=== PATIENT | female | born 1990 | race Caucasian/White ===

== ENCOUNTER 2024-02-15 13:56 | Outpatient (CLI) | payer OTHER, SELFPAY ==
--- NOTE | 2024-02-15 14:00 | CRLHL7_ITS ---
For Patients: As a result of the Century Cures Act, medical imaging exams and procedure reports are released immediately into your electronic medical record. You may view this report before your referring provider. If you have questions, please contact your health care provider. INDICATION: Dating and viability. LMP 12/17/2023. COMPARISON: None. TECHNIQUE: Real-time waggoner-scale imaging of the pelvis was performed. FINDINGS: Sonographic imaging demonstrates a single living intrauterine gestation. The embryo has a regular cardiac rate measuring 142 beats per minute. The embryo`s crown-rump length measures 1.2 cm which corresponds to a gestational age of 7 weeks 3 days with sonographic due date 09/30/2024. There is a normal-appearing yolk sac. The placenta has not yet developed. There is a 2.3 x 0.1 x 1.2 cm subchorionic hemorrhage posterior to the gestational sac. The right ovary was not visualized. The left ovary measures 4.6 x 2.5 x 2.4 cm and contains a corpus luteal cyst. No free fluid in the pelvic cul-de-sac. IMPRESSION: 1. Single living intrauterine gestation corresponding to an ultrasound gestational age of 7 weeks 3 days with sonographic due date 09/30/2024. 2. The clinical gestational age by LMP is 8 weeks 4 days. 3. Small subchorionic hemorrhage. Dictated by Niurka Ramirez MD @ 02/16/2024 3:08:36 AM (Electronically Signed)
== END 2024-02-15 13:57 | disposition home or self-care (01) ==
LOC: US 13:57
PROVIDERS: Visit Provider Advanced Practice Midwife
DX: Z34.91 Encounter for supervision of normal pregnancy, unspecified, first trimester (principal); O20.9 Hemorrhage in early pregnancy, unspecified; Z3A.01 Less than 8 weeks gestation of pregnancy
CPT/HCPCS: 76817; 86703; 86706; 86803; 86850; 86900; 86901; 87086; 87340

== ENCOUNTER 2024-02-15 14:45 | Outpatient (CLI) | payer OTHER, SELFPAY | END 2024-02-15 14:46 | disposition home or self-care (01) | PROVIDERS: Visit Provider Advanced Practice Midwife | DX: Z34.91 Encounter for supervision of normal pregnancy, unspecified, first trimester (principal); Z3A.01 Less than 8 weeks gestation of pregnancy | CPT/HCPCS: 86592; 86703; 86704; 86706; 86762; 86787; 86803; 86850; 86900; 86901; 87086; 87340 ==

== ENCOUNTER 2024-04-13 14:56 | Outpatient (CLI) | payer OTHER, SELFPAY | END 2024-04-13 14:57 | disposition home or self-care (01) | LOC: NFLDREF 04-24 02:50 | PROVIDERS: Visit Provider Advanced Practice Midwife | DX: Z34.92 Encounter for supervision of normal pregnancy, unspecified, second trimester (principal); Z86.79 Personal history of other diseases of the circulatory system; Z87.59 Personal history of other complications of pregnancy, childbirth and the puerperium; Z3A.15 15 weeks gestation of pregnancy | CPT/HCPCS: 82565; 82570; 84156; 84450; 84460; 84520 ==

== ENCOUNTER 2024-04-14 15:00 | Outpatient (CLI) | payer OTHER, SELFPAY | END 2024-04-14 15:01 | disposition home or self-care (01) | LOC: NFLDREF 04-22 19:37 | PROVIDERS: Visit Provider Advanced Practice Midwife | DX: Z87.59 Personal history of other complications of pregnancy, childbirth and the puerperium (principal) | CPT/HCPCS: 82570; 84156 ==

== ENCOUNTER 2024-05-12 12:08 | Outpatient (CLI) | payer OTHER, SELFPAY ==
--- NOTE | 2024-05-12 12:15 | CRLHL7_ITS ---
For Patients: As a result of the 21st Century Cures Act, medical imaging exams and procedure reports are released immediately into your electronic medical record. You may view this report before your referring provider. If you have questions, please contact your health care provider. GARTH by US: 09/30/2024. GA: 19w, 6d. Single. INDICATION: anatomy. CERVIX: Closed. Measurement: 5.2. POSITIONING: Breech, multiple positions. AMNIOTIC FLUID: 4.0 cm SDP. PLACENTA: Technique: Transabdominal and transvaginal. PLACENTA POSITION: Posterior. Placenta tip to internal os is marginal. DOPPLER: heart rate: 138 bpm. Biometry: BPD: 4.6 cm. 20w, 0d, 54 percent. HC: 17.1 cm. 19w, 5d, 33 percent. AC: 14.1 cm. 19w, 3d, 30.4 percent. FL: 3.1 cm. 19w, 3d, 28 percent. FL/AC ratio: 21.71 percent. HC/AC ratio: 1.21. EFW: 294.69 g. Weight: 0 lbs, 10 oz. age by this US: 20w, 0d. GARTH by this US: 09/29/2024. Percentile by GARTH: 25.2 percent. SURVEY: Observed Structures Cerebellum: Yes. 2.2 cm; 21w 4d. Cisterna Magna: Yes. 4.5 mm. Nuchal Fold: Yes. 2.9 mm. Lateral Ventricle: Yes. 5.7 mm. CSP: Yes. Midline Falx: Yes. Choroid Plexus: Yes. Spine: Yes. Stomach: Yes. Abd Cord Insertion: Yes. Urinary Bladder: Yes. Kidneys: Yes. Diaphragm: Yes. Nose/lips: Yes. Orbital view: Yes. Profile: Yes. Upper Extremities: Yes. Lower Extremities: Yes. Hands: Yes. Feet: Yes. Four-Chamber Heart: Yes. LVOT: Yes. RVOT: Yes. 3VV: Yes. 3VTV: Yes. IMPRESSION: 1. Sonographic gestational age 20 weeks 0 days and sonographic due date 09/29/2024. Good correlation with dates. 2. Bilateral choroid plexus cysts measuring 8 x 6 mm on the right and 12 x 8 mm on the left. Remainder of the anatomic survey is normal. Level 2 ultrasound recommended. 3. The posterior placental edge extends to the internal cervical os consistent with marginal previa. Follow-up in the 3rd trimester recommended. Aaron Verde M.D. Diagnostic Radiologist [email or web address] bM/Dictated by: Aaron Verde MD @ 05/12/2024 1:44:00 PM (Electronically Signed)
== END 2024-05-12 12:09 | disposition home or self-care (01) ==
LOC: US 12:09
PROVIDERS: Visit Provider Advanced Practice Midwife
DX: Z34.92 Encounter for supervision of normal pregnancy, unspecified, second trimester (principal); O34.82 Maternal care for other abnormalities of pelvic organs, second trimester; N83.292 Other ovarian cyst, left side; N83.291 Other ovarian cyst, right side; Z3A.20 20 weeks gestation of pregnancy
CPT/HCPCS: 76805; 76817

== ENCOUNTER 2024-07-06 12:45 | Outpatient (CLI) | payer OTHER, SELFPAY | END 2024-07-06 12:46 | disposition home or self-care (01) | LOC: NFLDREF 07-12 03:47 | PROVIDERS: Visit Provider Advanced Practice Midwife | DX: Z34.83 Encounter for supervision of other normal pregnancy, third trimester (principal) | CPT/HCPCS: 86592 ==

== ENCOUNTER 2024-07-06 12:47 | Outpatient (CLI) | payer OTHER, SELFPAY ==
--- NOTE | 2024-07-06 13:00 | CRLHL7_ITS ---
For Patients: As a result of the Century Cures Act, medical imaging exams and procedure reports are released immediately into your electronic medical record. You may view this report before your referring provider. If you have questions, please contact your health care provider. OB ULTRASOUND FOLLOW-UP TRANSABDOMINAL AND TRANSVAGINAL, 07/06/2024 CLINICAL HISTORY: Growth, Choroid plexus cysts, marginal placenta previa. COMPARISON: 05/12/2024, 02/15/2024. TECHNIQUE: Real time waggoner scale imaging of the fetus was performed transabdominal and transvaginal. FINDINGS: GARTH by LMP/US: 09/30/2024. GA: 27 weeks 5 days. CERVIX: Not visualized. POSITIONING: Vertex. AMNIOTIC FLUID: 5 cm SDP. PLACENTA: Technique: Transabdominal and transvaginal. Placenta Position: Posterior. DOPPLERS: Heart Rate: 152 bpm. BIOMETRY: BPD: 7.1 cm, 28 weeks 3 days. 63% HC: 26.1 cm, 28 weeks 3 days. 42% AC: 24.6 cm, 28 weeks 6 days. 75% FL: 5.1 cm, 27 weeks 3 days. 24% FL/AC Ratio: 20.77%. HC/AC: 1.06. EFW: 1196 grams, 2 lb 10 oz. Age by this US: 28 weeks 2 days. GARTH by this US: 09/26/2024. Percentile by GARTH: 59% IMPRESSION: 1. Sonographic gestational age 28 weeks 2 days and sonographic due date 09/27/2023. Sonographic age is 4 days ahead of the clinical age. 2. Estimated weight 59th percentile. Abdominal circumference 75th percentile. 3. Choroid plexus cysts are not present on the current study. 4. The posterior placental edge is located 2.8 cm from the cervical os with transvaginal imaging. Aaron Verde M.D. Diagnostic Radiologist [email or web address] Transcribed: 9:56 am DW/Dictated by: Aaron Verde MD @ 07/07/2024 6:54:00 AM (Electronically Signed)
== END 2024-07-06 12:48 | disposition home or self-care (01) ==
LOC: US 12:48
PROVIDERS: Visit Provider Advanced Practice Midwife
DX: O35.03X0 Maternal care for (suspected) central nervous system malformation or damage in fetus, choroid plexus cysts, not applicable or unspecified (principal); O44.22 Partial placenta previa NOS or without hemorrhage, second trimester; Z3A.27 27 weeks gestation of pregnancy
CPT/HCPCS: 76816; 76817

== ENCOUNTER 2024-07-18 08:19 | Outpatient (CLI) | payer OTHER, SELFPAY | END 2024-07-18 08:20 | disposition home or self-care (01) | LOC: NFLDREF 07-21 15:47 | PROVIDERS: Visit Provider Advanced Practice Midwife | DX: O99.810 Abnormal glucose complicating pregnancy (principal); Z3A.29 29 weeks gestation of pregnancy | CPT/HCPCS: 82951; 82952 ==

== ENCOUNTER 2024-09-01 15:50 | Outpatient (CLI) | payer OTHER, SELFPAY ==
[2024-09-02 13:20] LABS: Strep B DNA Probe Negative (Negative)
[2024-09-02 13:21] LABS: Strep B Susceptibility Needed? No
== END 2024-09-01 15:51 | disposition home or self-care (01) ==
LOC: NFLDREF 15:50
PROVIDERS: Visit Provider Midwife
DX: Z34.93 Encounter for supervision of normal pregnancy, unspecified, third trimester (principal); Z3A.35 35 weeks gestation of pregnancy
CPT/HCPCS: 87081; 87653

== ENCOUNTER 2024-09-08 13:28 | Outpatient (CLI) | payer OTHER, SELFPAY ==
--- NOTE | 2024-09-08 13:45 | CRLHL7_ITS ---
For Patients: As a result of the Century Cures Act, medical imaging exams and procedure reports are released immediately into your electronic medical record. You may view this report before your referring provider. If you have questions, please contact your health care provider. GARTH by US: 09/30/2024. GA: 36w, 6d. Single. INDICATION: Measuring small for dates. CERVIX: Not visualized. POSITIONING: Vertex. AMNIOTIC FLUID: 7.4 cm SDP. PLACENTA: Technique: Transabdominal. PLACENTA POSITION: Fundal posterior DOPPLER: heart rate: 132 bpm. Biometry: BPD: 9.3 cm. 37w, 6d, 87 percent. HC: 33.9 cm. 39w, 0d, 74 percent. AC: 32.6 cm. 36w, 4d, 54 percent. FL: 7.1 cm. 36w, 3d, 38 percent. FL/AC ratio: 21.82 percent. HC/AC ratio: 1.04. EFW: 3073 g. Weight: 6 lbs, 12 oz. age by this US: 37w, 3d. GARTH by this US: 09/26/2024. Percentile by GARTH: 58 percent. IMPRESSION: 1. Sonographic gestational age 37 weeks 3 days and sonographic due date 09/26/2024. Good correlation with dates. Normal interval growth. 2. Estimated weight 58th percentile. Abdominal circumference 54th percentile. Aaron Verde M.D. Diagnostic Radiologist [email or web address] bM/Dictated by: Aaron Verde MD @ 09/11/2024 4:28:00 PM (Electronically Signed)
== END 2024-09-08 13:29 | disposition home or self-care (01) ==
LOC: US 13:28
PROVIDERS: Visit Provider Advanced Practice Midwife
DX: O36.5930 Maternal care for other known or suspected poor fetal growth, third trimester, not applicable or unspecified (principal); Z3A.37 37 weeks gestation of pregnancy
CPT/HCPCS: 76816

== ENCOUNTER 2024-09-29 18:42 | Inpatient (IN) | payer OTHER, SELFPAY ==
[2024-09-29] VITALS (41 sets, daily range): BP systolic 107–150; BP diastolic 59–104; PULSE 64–108; RESP 16; TEMP 36.7–36.8; O2SAT 96–100; BMI 25.9
[2024-09-29] MEDS: LACTATED RINGERS 1000 ML 1,000 ML 1200 ML IV (19:00)
--- NOTE | 2024-09-29 19:05 | P.LDBA_ITS ---
Subjective History of Present Illness Date Seen: 09/29/24 Narrative: Patient is being admitted to Labor and Delivery for SROM and contractions which she reports started around 1430 today. She is a 34 year old at 39.6 weeks gestation. Her full history and physical was dictated by Cammie Denise CNM on 09/07/24. Please see this for details. Specific Issues/Plans : Mario, Daughter: Aliyah It is another girl! H&P 09/07/24 by Cammie Denise CNM # Hx PP hypertension Treated on medication x2 weeks w/ last , no documentation of magnesium Recommended baby asa, declines baseline labs normal # Hx of episiotomy Very nervous about this and feels it wasn't necessary, reassurance provided that this is not routinely performed # Hx of depression Never been on medication, seen counselor in past #Failed 1 hr GTT Passed 4/4 of 3hr GTT. # Placenta Previa Resolved US for placental location 28-30 weeks-placental edge 2.8cm from os # Bilateral choroid plexus cysts Resolved on 28 wk US Considering NIPT and level 2 US but declined after resolved on 28wk scan. Covid- declined Flu- declined Tdap- 08/17/2024 OB - Problem Based A/P Additional Plan (1) SROM (spontaneous rupture of membranes): Status: Acute (2) Pain during labor: Status: Acute (3) 39 weeks gestation of : Status: Acute Plan Assessment:?? at 39.6 weeks gestation?? GBS negative? Patient is coping well with challenges of labor.?? Labor type: Spontaneous, Early labor? Category 1 FHR pattern.? complicated by: Failed 1 hr GTT with normal 3 hr GTT, hx of PP HTN Plan:?? * ?Admit to L & D? * IV access: Saline lock * Monitoring per policy: continuous ? * Candidate for analgesia of choice.? Planning epidural for pain management * Expectant management at this time ? * Patient encouraged to reposition and ambulate to promote physiologic labor and . * Anticipate ? Delivery/Labor/Induction Plan Plan: expectant management OB Exam Physical Exam Vital signs: VSS, afebrile? General Appearance:? Calm, cooperative.? No acute distress.? Normal affect.? Psychiatric Exam: Alert and oriented, appropriate affect? HEENT: normocephalic, neck supple, full ROM? Respiratory:? Symmetrical chest wall movement.? Normal respiratory effort.? Clear to auscultation? Cardiac:? regular rate and rhythm? Abdomen: Gravid, non tender? Extremities:? normal and trace edema? Skin: warm, dry.??? Ctx:? Q 1.5-2 min apart.? ? ? Strong? FHTs:? Baseline: 150.? Variability: moderate.?? Accels: +.??? Decels:? -.? SVE: 4/70/-2 per RN, leaking large amounts of fluid with exam Membranes: ? SROM clear fluid? Detailed Labor and Delivery Exam Patient Gravid: yes Fetus (Single) Amniotic Membrane Status: SROM Amniotic Membrane Fluid Description: Clear
[2024-09-29] MEDS: LIDOCAINE 2% (PF) 5 ML VIAL EPIDURAL (19:23)
[2024-09-29] MEDS: ROPIVACAINE 0.2% 100 ml 100 ML 12 MG EPIDURAL (19:23)
[2024-09-29] MEDS: fentaNYL 250 MCG/5 ML inj 100 MCG EPIDURAL (19:38)
--- NOTE | 2024-09-29 19:55 | PM.ANBPRC ---
[facility] Medical History History of episiotomy ?Z98.890 - Other specified postprocedural states (ICD-10) hypertension ?O16.5 - Unspecified maternal hypertension, complicating the puerperium (ICD-10) Depression ?F32.A - Depression, unspecified (ICD-10) Surgical History [place] teeth extracted ?K08.409 - Partial loss of teeth, unspecified cause, unspecified class (ICD-10) Family History Maternal Grandfather High blood pressure Paternal Grandmother Diabetes Social History Narrative: SOCIAL Education: College Work: [employer] Partner: Mario Lives with: Smith Pets: 3 cats and a dog Abuse: Denies past/present Special Diet: Denies Ok with a blood transfusion: yes Culture or baptism beliefs: denies RISK FACTORS Exercise Times/wk: No routinely Hx of Depression and/or Anxiety/other mood disorder: Minor history of depression, no medication; seen therapist in the past Seat Belt Use: Routinely Smoking: Denies past/present Alcohol/day: Denies while Caffeine: Not now, occasional coffee/tea Drug Use: Denies past/present Chicken Pox: vaccinated MRSA: Denies What is your current living situation?: I presently have a place to live Problems where you live: no known problems In the past 12 months, utilities in danger of being shut off: no In past 12 months, lack of transportation kept you from medical appts, meetings, work, or getting things needed for daily living: no In the past 12 mos, have been you worried that your food would run out before you had money to buy more?: never true In the past 12 mos, the food you bought just didn't last and you didn't have money to buy more?: never true How often does anyone, including family, friends and others, physically hurt you: never How often does anyone, including family, friends and others, insult or talk down to you: never How often does anyone, including family, friends and others, threaten you with harm: never How often does anyone, including family, friends and others, scream or curse at you: never Meds Home Medications and Allergies Home Medications ?Medication ?Instructions ?Recorded ?Confirmed ?Type vitamins no.119-iron tab PO 02/15/24 09/28/24 History fumarate 29 mg-folic acid 1 mg tablet magnesium 200 mg tablet 200 mg PO QDAY 04/13/24 09/28/24 History Allergies Allergy/AdvReac Type Severity Reaction Status Date / Time No Known Drug Allergies Allergy Verified 09/28/24 14:24 Results Vital Signs Vital Signs: Last Vital Signs Temp 98.1 F 09/29/24 19:20 Pulse 79 09/29/24 19:50 Resp 16 09/29/24 19:20 BP 121/75 09/29/24 19:50 Pulse Ox 99 09/29/24 19:51 Anesthesia Procedures Epidural Insertion Patient Location: OB Start Time: 19:00 Stop Time: 20:00 Start Date: 09/29/24 Stop Date: 09/29/24 Reason for Block: primary anesthetic Patient Position: sitting Performed By: Ej Maldonado Preanesthetic Checklist: IV checked, risks and benefits discussed, surgical consent, monitors and equipment checked, pre-op evaluation, timeout performed and anesthesia consent Prep: chlorhexidine gluconate Monitoring: blood pressure monitoring, bioinformatics assistant, continuous pulse oximetry and heart rate Approach: midline Vertebral Space: lumbar (1-5) Needle Type: Tuohy needle Injection Technique: continuous catheter Needle gauge: 17 Needle Length (cm): 10 cm Needle Insertion Depth (cm): 6 Catheter Gauge: 19 Catheter Type: multi-orifice Catheter at skin depth (cm): 12 Test Dose Result: negative and lidocaine 1.5% with epinephrine 1 to 200,000 Events: other
[2024-09-29] MEDS: LACTATED RINGERS 1000 ML 1,000 ML 125 ML IV (20:01)
[2024-09-29 20:49] LABS: Basophils Percent Auto 0.1 % (0.0-3.0); Eosinophils Percent Auto 0.2 % (0.0-7.0); Hematocrit 40.3 % (33.0-51.0); Hemoglobin* 13.3 gm/dL (12.0-16.0); Immature Granulocytes Pct Auto 0.1 %; Lymphocytes Percent Auto 13.5 % (20-44); Mean Corpuscular HGB Conc 33 gm/dL (32-36); Mean Corpuscular Hemoglobin 30 pg (26-34); Mean Corpuscular Volume 92 fL (80-100); Monocytes Percent Auto 4.3 % (0.0-11.0); Neutrophils Percent Auto 81.8 % (42.0-72.0); Platelet Count* 228 K/uL (140-440); RDW Coefficient of Variation % 12.3 % (11.5-15.5); White Blood Count* 13.68 K/uL (4.50-11.00)
[2024-09-29 20:50] LABS: Slide Review Reflex No
--- NOTE | 2024-09-29 21:31 | PM.OBPNL ---
Subjective Date Seen: 09/29/24 Narrative: ?Jie is coping well with labor pain/contractions. ?Mario is with her for support. ?She is using an epidural for comfort and pain management.?She is starting to feel shaky but denies feeling rectal or pelvic pressure. She has had 3 mildly elevated blood pressures since admission, have not been 4 hours apart. Normotensiive BPs throughout , does have a history of hypertension. Objective Exam: VSS, afebrile General Appearance:? Calm, cooperative. ?No acute distress. ? Psychiatric Exam: Alert and oriented, appropriate affect Abdomen: Gravid Ctx: ?Q 1.5-2 min apart. ? ? ?Strong FHTs: ?Baseline: 135. ? ? Variability: moderate. ?Accels: +. ? ?Decels: ?-. SVE: deferred Membranes: ?SROM clear Vital Signs: Last Vital Signs Temp 98.2 F 09/29/24 20:16 Pulse 74 09/29/24 21:19 Resp 16 09/29/24 19:20 BP 140/80 H 09/29/24 21:19 Pulse Ox 97 09/29/24 20:54 Assessment Amniotic Membrane Status: SROM Plan Plan: Assessment:?? at 39.6 weeks gestation?? GBS neg Patient is coping well with challenges of labor.?? Labor type: Spontaneous, Early labor? Category 1 FHR pattern.? complicated by: Failed 1 hr GTT with normal 3 hr GTT, hx of PP HTN Labor complicated by: elevated BP without diagnosis of hypertension? Plan:?? Continue with routine intrapartum cares as ordered.?? Patient encouraged to move and change positions to promote physiologic labor and .?? Epidural per anesthesia orders Anticipate progress to NVD. ?
[2024-09-29] MEDS: OXYTOCIN 30 unit/500 ML in NS 30 UNIT/500 ML BAG 300 UNIT IVPB (22:54)
[2024-09-29] MEDS: LIDOCAINE 1 % PF 30 ML INJECTION (23:05)
[2024-09-30] VITALS (10 sets, daily range): BP systolic 107–156; BP diastolic 65–84; PULSE 60–93; RESP 16–20; TEMP 36.6–36.9; O2SAT 96–97
--- NOTE | 2024-09-30 00:11 | W.PM.OBVAGDE ---
OB Procedure Vag Delivery Mother Details Mother Details: The patient is a 34 year-old, 2, Para 2, admitted on 09/29/24 at 39.6 weels gestation. : 2 Para: 2 Weeks Gestation: 39.6 Admission Date: 09/29/24 Additional Details Amniotic Membrane Status: SROM Amniotic Membrane Rupture Date: 09/29/24 Amniotic Membrane Rupture Time: 14:30 Amniotic Membrane Fluid Description: Clear Analgesia/Anesthesia Type: Epidural Waterbirth: No Pitcoin: Yes (AMTSL) Intrapartal Events: None Labor Onset: 14:30 Complete: 22:08 Pushin:10 Heart: heart tones during second stage were Category II, moderate variability, variables with contractions. Delivery Details Delivery Date: 09/29/24 Delivery Time: 22:53 Route of delivery: Gender: Female Viability: Alive; Heart Rate Present Position at Delivery: OA Delivery Details: 34?y.o?at 39.6 weeks.? Jie arrived with SROM of clear fluid at home and painful contractions. She was 4cm dilated on admission and requested an epidural for pain management. She progressed normally to complete at 2208. ? ?She pushed in low fowlers positions effectively.? Spontaneous vaginal delivery at 2253 of?a viable? female infant.??Delivered in vertex OA position.??Shoulders delivered easily.? Spontaneous cry noted.??Infant placed on maternal abdomen.??Cord?was clamped and cut after a 5+ minute delay.??Nose and mouth were bulb suctioned.??? Shoulder dystocia: no? Nuchal cord: yes, reduced easily? Meconium stained?fluid: no? Water : no? ? ? 7 at 1 minute and 8 at 5 minutes.? Weight is pending. ? Placenta delivered spontaneously and?complete?at 2300 with a?3 vessel?cord.?? Bleeding controlled with fundal massage and?pitocin?for AMTSL.? ? Lacerations:? 2nd degree, with extension to left labia repaired with 3-0?vicryl. Right labial laceration also repaired. ?? ? Bleeding?post delivery?was: moderate. ?The fundus was firm to palpation.? Blood loss: 400?mL.? Blood loss measurement type: ? QBL? ? Sponge,?lap?and needles counts are correct.? Mother and infant were stable after delivery.? 1 Minute Interval Total Score: 7 5 Minute Interval Total Score: 8 Additional Details Shoulder Dystocia: No Placenta Delivery Time: 23:00 Placental Delivery Description: Spontaneous Delivery repair: Vicryl Procedure Done: Global Blood Loss: 400 Laceration: Perineal - 2nd Degree Blood Loss Measurement Type: QBL Bakri Used: No Sponge/Need Count Correct: Yes Cord Vessel Description: 3 Vessels, Nuchal Cord, Loose and Reduced Event Summary Status: Mother and infant were stable after delivery. Disposition: floor
[2024-09-30 00:37] LABS: Hematocrit 40.7 % (33.0-51.0); Hemoglobin* 13.5 gm/dL (12.0-16.0); Mean Corpuscular HGB Conc 33 gm/dL (32-36); Mean Corpuscular Hemoglobin 31 pg (26-34); Mean Corpuscular Volume 92 fL (80-100); Platelet Count* 191 K/uL (140-440); Red Blood Count 4.43 m/uL (4.00-5.20); White Blood Count* 19.33 K/uL (4.50-11.00)
[2024-09-30 00:39] LABS: Slide Review Reflex No
--- NOTE | 2024-09-30 00:48 | PM.EN ---
Chart Event Note Date Seen: 09/30/24 Chart Event Note: Jie has now had mildly elevated blood pressures greater than 4 hours apart. Meets criteria for gestational HTN, preeclampsia labs are pending. Denies symptoms of preeclampsia at this time.
[2024-09-30 00:53] LABS: Alanine Aminotransferase* 37 U/L (4-35); Aspartate Amino Transferase* 58 U/L (12-35); Blood Urea Nitrogen* 13 mg/dL (5-24); Creatinine* 0.7 mg/dL (0.5-1.5); Estimated Glomerular Filt Rate 116 ml/min
[2024-09-30] MEDS: NIFEdipine ER 30 MG TAB PO (01:12)
[2024-09-30] MEDS: ACETAMINOPHEN 500 MG TABLET 1000 MG PO ×2 (04:35→13:35)
[2024-09-30] MEDS: DOCUSATE SODIUM 100 MG CAPSULE PO (08:50)
[2024-09-30] MEDS: IBUPROFEN 600 MG TABLET PO ×2 (08:54→19:35)
[2024-09-30 08:56] LABS: Hematocrit 39.8 % (33.0-51.0); Hemoglobin* 13.1 gm/dL (12.0-16.0); Mean Corpuscular HGB Conc 33 gm/dL (32-36); Mean Corpuscular Hemoglobin 30 pg (26-34); Mean Corpuscular Volume 92 fL (80-100); Platelet Count* 188 K/uL (140-440); Red Blood Count 4.32 m/uL (4.00-5.20); White Blood Count* 18.29 K/uL (4.50-11.00)
[2024-09-30 09:15] LABS: Slide Review Reflex No
[2024-09-30 09:35] LABS: Alanine Aminotransferase* 32 U/L (4-35); Aspartate Amino Transferase* 46 U/L (12-35); Blood Urea Nitrogen* 9 mg/dL (5-24); Creatinine* 0.7 mg/dL (0.5-1.5); Estimated Glomerular Filt Rate 116 ml/min
[2024-09-30] MEDS: LANOLIN CREAM 1 APPLIC TOPICAL (10:38)
--- NOTE | 2024-09-30 10:41 | P.OBPN_ITS ---
OB - PN:Subj Subjective Time Seen by Provider: 10:41 Date Seen: 09/30/24 Interval history: Day 1:? Vaginal Delivery at 39 and 6/7 weeks.? ?? Complications:? gHTN diagnosed in labor? Jie feels well.? Her pain is well controlled with current medications.? She has no new complaints.? Urinary output is adequate and she is voiding without difficulty.? Has a good appetite, is tolerating a general diet, is passing flatus, and has not had a bowel movement.? Has normal amount of rubra lochia.? She is ambulating well.? Patient comments OB post-: no complaints (specifically denies WRAY, vision changes, or epigastric pain. ) infant status: feeding status: exclusively (Notes some nipple soreness and shallow latch at times. Had difficulty with low supply with first baby and despite frequent feeding and pumping weaned at 6wks of age. ) OB - PN: Obj Exam Physical Exam: Vital signs: Temp Pulse Resp BP Pulse Ox O2 Del Method 97.9 F 69 16 107/71 96 Room Air 09/30/24 08:05 09/30/24 08:05 09/30/24 08:05 09/30/24 08:05 09/30/24 08:05 09/30/24 08:05 Narrative: GENERAL APPEARANCE:? normal affect, alert, no distress? MOOD:? appropriate? CHEST:? clear to auscultation and percussion? HEART:? regular rate and rhythm? ABDOMEN:? soft, non-tender the uterine fundus is firm @ U and is appropriate for the stage of recovery.? PERINEUM:? mild edema of the perineum, there is a 2nd degree laceration that is healing well.? EXTREMITIES:? normal and 1+ edema?in lower legs OB - PN: Obj Data Labs Labs: Laboratory Results - last 24 hr 09/29/24 09/30/24 09/30/24 19:01 00:25 08:50 WBC 13.68 H 19.33 H 18.29 H RBC 4.40 4.43 4.32 Hgb 13.3 13.5 13.1 Hct 40.3 40.7 39.8 MCV 92 92 92 MCH 30 31 30 MCHC 33 33 33 RDW Coeff of Ariane 12.3 Plt Count 228 191 188 Neut % (Auto) 81.8 H Lymph % (Auto) 13.5 L [place] % (Auto) 4.3 Eos % (Auto) 0.2 Baso % (Auto) 0.1 Neut # (Auto) 11.20 H Lymph # (Auto) 1.80 [place] # (Auto) 0.60 Eos # (Auto) 0.00 Baso # (Auto) 0.00 Abs Immat Gran (auto) 0.00 Imm/Tot Granulo (auto) 0.1 BUN 13 9 Creatinine 0.7 0.7 Estimated Creat Clear 101.90 101.90 Estimated GFR 116 116 AST 58 H 46 H ALT 37 H 32 OB - PN: A/P Delivery Assessment and Plan (1) care and examination of lactating mother: Start date: 09/30/24 Status: Acute Assessment and Plan: 34 year old on day 1.? 1. cares.? 2. Anticipate discharge tomorrow.? (2) Sore nipples due to : Start date: 09/30/24 Status: Acute Assessment and Plan: RN to provide lanolin cream and support with next feeding. Advised pt to ensure baby has deep latch at the breast, and to re-position if latch is shallow. Gave positive feedback for prior experience with . (3) Gestational hypertension: Start date: 09/30/24 Status: Acute Assessment and Plan: Reviewed preeclamptic labs with pt; liver enzymes remain mildly elevated but are downtrending. Plan to repeat labs in 12 hours to confirm this trend. Deferred 0900 dose of nifedipine d/t BP at 0805 today was 107/71. Reassess need for nifedipine if BP increases. Consider d/c home with HCTZ 25mg x 7 days. Plan day: 1 Plan: routine care Total time spent: 30 minutes
--- NOTE | 2024-09-30 13:46 | PM.ANPOST ---
Post Anesthesia Note Post Anesthesia Note Patient seen: Inpatient Respiratory Status: adequate Cardiovascular Status: adequate Mental Status: baseline Pain: adequate Temp: baseline Anesthetic awareness: N/A Complications: none Follow care: none
[2024-09-30 22:07] LABS: Basophils Percent Auto 0.3 % (0.0-3.0); Eosinophils Percent Auto 0.5 % (0.0-7.0); Hemoglobin* 12.2 gm/dL (12.0-16.0); Immature Granulocytes Pct Auto 1.1 %; Lymphocytes Percent Auto 17.7 % (20-44); Mean Corpuscular HGB Conc 33 gm/dL (32-36); Mean Corpuscular Hemoglobin 31 pg (26-34); Mean Corpuscular Volume 93 fL (80-100); Monocytes Percent Auto 4.7 % (0.0-11.0); Neutrophils Percent Auto 75.7 % (42.0-72.0); Platelet Count* 185 K/uL (140-440); RDW Coefficient of Variation % 12.8 % (11.5-15.5); White Blood Count* 12.92 K/uL (4.50-11.00)
[2024-09-30 22:10] LABS: Slide Review Reflex No
[2024-09-30 22:20] LABS: Alanine Aminotransferase* 28 U/L (4-35); Aspartate Amino Transferase* 45 U/L (12-35); Blood Urea Nitrogen* 16 mg/dL (5-24); Creatinine* 0.7 mg/dL (0.5-1.5); Estimated Glomerular Filt Rate 116 ml/min
[2024-10-01] MEDS: ACETAMINOPHEN 500 MG TABLET 1000 MG PO (00:04)
[2024-10-01 00:41] VITALS: BP 132/82; PULSE 76; RESP 20; O2SAT 98
[2024-10-01] MEDS: DOCUSATE SODIUM 100 MG CAPSULE PO (00:46)
[2024-10-01 04:01] VITALS: BP 113/71; PULSE 63; RESP 16; O2SAT 97
[2024-10-01 08:00] VITALS: BP 126/86; PULSE 72; RESP 16; TEMP 36.9; O2SAT 98
--- NOTE | 2024-10-01 08:23 | P.DS_ITS ---
DS: Providers Provider Date Seen: 10/01/24 Date of admission: 09/29/24 18:42 Primary care physician: Not a Local Provider Admitting Clinician: Shayla Wall CNM Attending Physician on discharge: Chance MCINTYRE Date of Discharge: 10/01/24 DS: Diagnosis Discharge Diagnosis (1) care and examination of lactating mother: Status: Acute (2) Gestational hypertension: Status: Acute (3) Sore nipples due to : Status: Acute Exam Narrative: Exam Narrative: GENERAL APPEARANCE:? normal affect, alert, no distress MOOD:? appropriate CHEST:? clear to auscultation HEART:? regular rate and rhythm ABDOMEN:? soft, non-tender the uterine fundus is At Umbilicus a little off left, is appropriate for the stage of recovery. PERINEUM:? mild edema of the perineum, there is a Perineal Laceration,? with no excessive erythema or edema. EXTREMITIES:? normal and mild edema Const: Vital Signs, click to edit/add: Vital Signs - 24 hr 09/30/24 12:30 09/30/24 17:00 09/30/24 19:26 Temperature 97.8 F 98.4 F 98 F Pulse Rate [Blood Pressure Cuff] 83 70 79 Respiratory Rate 16 16 18 Blood Pressure [Ri ght Arm] 111/71 124/81 116/78 Pulse Oximetry 97 97 97 Oxygen Delivery Me thod Room Air Room Air Room Air 10/01/24 00:41 10/01/24 04:01 10/01/24 08:00 Temperature 98.4 F Pulse Rate [Blood Pressure Cuff] 76 63 72 Respiratory Rate 20 16 16 Blood Pressure [Ri ght Arm] 132/82 113/71 126/86 Pulse Oximetry 98 97 98 Oxygen Delivery Me thod Room Air Room Air Room Air OB - DS: Summary Hospital Course Hospital Course: Jie is a 34 y.o. G 2 now P 2001 who was admitted to [facility] for SROM.? She had a NVD that was uncomplicated. The patient feels well.? The pain is well controlled with current medications.? She has no new complaints.? She is breast feeding and reports things are going ok with some nipple pain that seems to be improvving with lanolin use. the patient has done well the last 24h.? Vitals have been stable with normotensive BP but intermittent diastolics in the 80s have been noted. The Nifedipine was held yesterday morning due to BP 107/71. She denies WRAY, vision changes and RUQ pain. She has remained afebrile.? Has a good appetite, is tolerating a general diet.? She is voiding without difficulty.? She is passing gas and has had a bowel movement.? She is ambulating and denies any dizziness.? Has small amount of rubra lochia. She is planning condoms for prevention.? ?? Problems: GHTN ?? plan:? Discharge home with baby.? Follow up in 2 weeks and 6 weeks.? , may see if needed? Hgb 12.2. ? GHTN diagnosed by elevated BP greater than 4 hours apart? Labs stable with trending?improvement of liver enzymes Discharge home with BP cuff if does not already have one? Follow up in 3-5 days? Call for signs/symptoms of preeclampsia? Peripartum Data Infant delivery method: Vaginal Laceration description: Perineal - 2nd Degree Episiotomy description: None complications: none [facility] Gender: Female Discharge Plan: Home Status at Discharge Functional status at discharge: independent ambulation Overall status at discharge: patient is progressing back to baseline Time Spent with Patient Time attestation: Total time spent providing and/or coordinating discharge services: Time spent: Less than 30 minutes Discharge Plan Discharge Disposition: Home, Self-Care Date of Admission: 09/29/24 18:42 Attending Provider on Discharge: Mary Anne Garrett Primary Care Provider: Provider,Not a Local Condition: Stable Anticipated Discharge Date/Time: 10/01/24 12:46 Discharge Medications: New docusate sodium 100 mg Capsule 100 mg PO DAILY Qty: 60 0RF ibuprofen 600 mg Tablet 600 mg PO Q6H PRNQty: 60 0RF Continued PNV 119-iron fum-folic acid 29 mg iron- 1 mg tablet 1 tab PO DAILY magnesium 200 mg tablet 200 mg PO QDAY Discharge Orders: Discharge Order (Routine); Ordered 10/01/24 Ordered By: Mary Anne Garrett Patient Education: OB Over the Counter Medication Information, OB Vaginal/Breast Feeding Additional Instructions: Discharge instructions were reviewed with the patient including signs and symptoms of infection and home going medications Nothing vaginally for 6 weeks: no tampons or intercourse Do not drive while taking narcotic pain medication(s) Off Work or School for 6 weeks Symptoms to report to doctor: * Bleeding that saturates more than one pad per hour * Passing clots larger than the size of a golf ball * Pain not relieved by prescribed medication * Fever above 100.4 degrees Fahrenheit * A foul vaginal odor * Difficulty in emotions, mood, and functions * Thoughts of hurting yourself and/or * Painful, reddened area in your breast * Any drainage, redness, or tenderness in your IV/epidural site * Severe headache that doesn't improve after taking medications * Changes in vision, including temporary loss of vision, blurred vision, and/or light sensitivity * Upper abdominal pain (usually under ribs on the right side) * Decrease in urination or painful, frequent urinating * Chest pain * Shortness of breath * Tenderness or pain with redness and/swelling in the calf(s) of your leg [facility] for [facility] BP check?October 03 or 2024 Call with BP greater than or equal to 140/90 so we can restart Nifedipine medication 2-week visit: discuss feeding concerns, review control options and screen for anxiety/depression. 6-week visit for an annual exam. consultation services are available to all mothers and babies for the first year after delivery.? To make an appointment, please call [phone]. You may take docusate sodium 100mg up to twice daily PRN for stool softening. Activity Level: Activity as Tolerated Discharge Diet: Regular Follow Up Appointments: [facility] [Provider Group] Forms: [facility] Info Instructions
[2024-10-01 15:43] LABS: Rapid Plasma Reagin (RPR) Non Reactive (Non Reactive)
== END 2024-10-01 10:30 | disposition home or self-care (01) | DRG 807 ==
LOC: OB OUT 18:43 → OB 18:44
PROVIDERS: Advanced Practice Midwife; Admitting Provider Advanced Practice Midwife; Visit Provider Advanced Practice Midwife
DX: O13.4 Gestational [pregnancy-induced] hypertension without significant proteinuria, complicating childbirth (principal); Z37.0 Single live birth; O70.1 Second degree perineal laceration during delivery; O92.79 Other disorders of lactation; Z3A.39 39 weeks gestation of pregnancy
CPT/HCPCS: 01967; 36415; 82565; 84450; 84460; 84520; 85025; 85027; 86592; A9270; J2003; J2795; J3010; J7120

== ENCOUNTER 2024-10-04 08:31 | Outpatient (CLI) | payer OTHER, SELFPAY ==
--- NOTE | 2024-10-04 16:44 | W.PM.LAC.MC ---
Consult Note - Mom Date of Visit Date of visit: 10/04/24 Reason for consultation: Assistance Needed and Low Milk Supply Visit Code: Visit Patient's Information Phone number: [phone] : 2 Para: 2 Allergies No Known Drug Allergies Allergy (Verified 09/29/24 20:18) Mother's Medical History: Medical History (Updated 10/01/24 @ 08:25 by Mary Anne Garrett CNM) History of episiotomy ?Z98.890 - Other specified postprocedural states (ICD-10) hypertension ?O16.5 - Unspecified maternal hypertension, complicating the puerperium (ICD-10) Depression ?F32.A - Depression, unspecified (ICD-10) Delivery Information Delivery type: Vaginal Gestational Age: 39+6 Gestational Weight For Age: AGA Weight: 3.475 kg Discharge Weight: 3.342 kg Percentage weight loss: 3.9 Baby's Information Baby's Age at Visit: 5 days Baby's Provider or Clinic: [facility] Jaundice: Yes Past Experience Past Experience: Yes (x6 weeks, didn't develop big supply, baby not latch well even in the hosp) Current Frequency of Day Feedings: every 2.5 hours Frequency of Night Feedings: 2.5-3 hours Both Breasts: Yes Suck: strong Latch: good, mostly comfortable Length of Time: 10-15 min on ea side, occas 20 min Goals: not re given history Pumping Pumping: Yes Quantity Pumped: can get u pto 3/4 oz before a feeding, maybe 1/4 oz during a feeding Supplementing EBM Supplement: Yes (just started yesterday) Formula Supplement: No Baby Elimination Number of Wet Diapers a Day: 4-5 in lst 24 hours Number of BM a Day: none for 3 days, then had a huge blowout here, dark green and runny Breast/Nipple Condition Breast Information: Breasts are symmetrical with rounded lower quadrants, intramammary distance is less than 1.5 inches. No erythema. Nipples are supple, everted prior to feeding. Breast Shape: Tubular Engorgement: Yes (slight) Maternal Nipple Condition - Left: Common Nipple Maternal Nipple Condition - Right: Common Nipple Sore Nipples: Yes (slight) Interventions for Sore Nipples: Lansinoh/Nipple Cream Baby Assessment Skin: Yellow (to abdomen, better than yesterday per parents) Tongue/frenulum: Normal/elastic Palate: Average Lips: Relaxed and Symmetrical Jaw Alignment: Symmetrical Mucosa: [place], moist Onsite Observation Pre-Feed weight: 3.19 kg (up 110 gms from yesterday) Post-Feed weight: 3.213 kg Milk Transferred (mL): 23 Position: Cross cradle Attachment/latch-on achieved: Easily Suck pattern: Suck burst and normal rest Swallow: Occasionally Behavior following feed: Alert, content Pre-Nursing Left Nipple: Within Normal Limits Pre-Nursing Right Nipple: Within Normal Limits Post-Nursing Left Nipple: Within Normal Limits Post-Nursing Right Nipple: Within Normal Limits Assessments/Interventions Assessments/Interventions: Remedios latched well to mom's RIGHT breast, latched well and stayed nursing for 10 minutes. Transferred 10 ml of milk Remedios then latched to mom's LEFT breast, latched well again and nursed for another 9.5 minutes. Transferred 8 ml of milk. Remedios needed minimal support to stay latched. While remedios latched to mom's second side, she put a Haakaa on the first side; retrieved 5 ml of milk that was fed to baby. Education provided: Early feeding cues to maximize timing of latching, Asymmetric latch technique for wide/deep latch to increase milk, Transfer for baby and increase comfort for mom, Supply/demand nature of milk supply, Need for frequent stimulation/milk removal, Alternative feeding methods (SNS, cup, finger feeding, bottling), Pumping for milk management and Milk collection, storage Handouts Provided: feedinhg plan Feeding Plan: Discussed baby's need vs. amount transferred. Given mom's history of low milk supply, recommend the following to see if she can increase her supply while also supporting baby's expected weight gain: Breastfeed for 10 on each breast, listening for active swallowing Pump both breasts for: 15-20 minutes after each feeding; a full 20 minutes if pumping instead of Feed baby 30-45 ml of pumped milk and/or formula every 2-3 hours based on feeding cues Use a syringe/feeding tube, cup, or bottle for feedings based on preference Rest, and repeat every 2-3 hours, watch for early feeding cues Try skin to skin to increase milk media production operator expression 2-3 times/day may result in more milk than pumping alone. Consider herbal supplements such as Liquid Gold Follow-Up Suggested follow up: Appointment in 1-3 days (appt in 5 days to evaluate mom's milk supply, baby's milk transfer and weight gain) Time Spent Time spent with patient (min): 90 Meds Home Medications and Allergies Home Medications ?Medication ?Instructions ?Recorded ?Confirmed ?Type vitamins no.119-iron 1 tab PO DAILY 02/15/24 09/29/24 History fumarate 29 mg-folic acid 1 mg tablet magnesium 200 mg tablet 200 mg PO QDAY 04/13/24 09/29/24 History docusate sodium 100 mg capsule 100 mg PO DAILY #60 caps 10/01/24 Rx ibuprofen 600 mg tablet 600 mg PO Q6H PRN #60 tabs 10/01/24 Rx Allergies Allergy/AdvReac Type Severity Reaction Status Date / Time No Known Drug Allergies Allergy Verified 09/29/24 20:18
== END 2024-10-04 08:32 | disposition home or self-care (01) ==
LOC: OB LAC 08:33
PROVIDERS: Visit Provider Advanced Practice Midwife
DX: Z39.1 Encounter for care and examination of lactating mother (principal)
CPT/HCPCS: G0463

== ENCOUNTER 2024-10-09 04:47 | Day surgery (SDC) | payer OTHER, SELFPAY ==
[2024-10-09] VITALS (17 sets, daily range): BP systolic 106–142; BP diastolic 73–97; PULSE 80–117; RESP 16–22; TEMP 36–37.4; O2SAT 98–100; BMI 21.6; BMI 21.7
--- NOTE | 2024-10-09 05:32 | ED_ITS ---
HPI - Female Genitourinary General Date Seen: 10/09/24 Chief complaint: Vaginal Bleeding Stated complaint: 1 week post bleeding Time Seen by Provider: 10/09/24 04:51 Source: patient, RN notes reviewed and old records reviewed Mode of arrival: ambulatory Limitations: no limitations History of Present Illness HPI Narrative: Patient is a very nice 34-year-old female presents here with vaginal bleeding, that occurred approximately 4:00 a.m., this is not associated with cramping, she got up, noted a gush of blood. With large clots. Continue to bleed whenever she stands up, much better if she lays back. She felt a little dizzy with this but had no syncopal type symptoms. She delivered spontaneous vaginal delivery, 11 days ago no appease ER me but she did had to have some sewing secondary to tears. She also was given Pitocin, could she had a little bit of what this is described in the notes is the uterine at knee. Placenta was apparently intact. She has had a little bit of lochia since then but nothing like this. No history of previous bleeding dyscrasias, no history family history of bleeding, she is on no anticoagulants. liver to normal child at 39 weeks 6 7 days. Did have a problem with some PIH, was on nifedipine but was not sent home with any prescriptions. Just using ibuprofen and vitamins. Related Data Home Medications ?Medication ?Instructions ?Recorded ?Confirmed vitamins no.119-iron 1 tab PO DAILY 02/15/24 10/09/24 fumarate 29 mg-folic acid 1 mg tablet Previous Rx's ?Medication ?Instructions ?Recorded docusate sodium 100 mg capsule 100 mg PO DAILY #60 cap s 10/01/24 ibuprofen 600 mg tablet 600 mg PO Q6H PRN #60 tabs 0 10/01/24 Allergies Allergy/AdvReac Type Severity Reaction Status Date / Time No Known Drug Allergies Allergy Verified 09/29/24 20:18 Review of Systems Status of ROS: Reports: 10 or more systems reviewed and unremarkable except as noted in History and below [facility] Medical History History of episiotomy ?Z98.890 - Other specified postprocedural states (ICD-10) hypertension ?O16.5 - Unspecified maternal hypertension, complicating the puerperium (ICD- 10) Depression ?F32.A - Depression, unspecified (ICD-10) Surgical History Andreas teeth extracted ?K08.409 - Partial loss of teeth, unspecified cause, unspecified class (ICD- 10) Family History Maternal Grandfather High blood pressure Paternal Grandmother Diabetes Social History Narrative: SOCIAL Education: College Work: [employer] Partner: Mario Lives with: Smith Pets: 3 cats and a dog Abuse: Denies past/present Special Diet: Denies Ok with a blood transfusion: yes Culture or yazidism beliefs: denies RISK FACTORS Exercise Times/wk: No routinely Hx of Depression and/or Anxiety/other mood disorder: Minor history of depression, no medication; seen therapist in the past Seat Belt Use: Routinely Smoking: Denies past/present Alcohol/day: Denies while Caffeine: Not now, occasional coffee/tea Drug Use: Denies past/present Chicken Pox: vaccinated MRSA: Denies What is your current living situation?: I presently have a place to live Problems where you live: no known problems In the past 12 months, utilities in danger of being shut off: no In past 12 months, lack of transportation kept you from medical appts, meetings, work, or getting things needed for daily living: no In the past 12 mos, have been you worried that your food would run out before you had money to buy more?: never true In the past 12 mos, the food you bought just didn't last and you didn't have money to buy more?: never true Smoking Status: Never smoker Do you use any of these nicotine containing products: None Second hand tobacco smoke exposure: No How often do you have a drink containing alcohol: never AUDIT-C Alcohol total score: 0 Non-prescribed substance use: denies use How often does anyone, including family, friends and others, physically hurt you : never How often does anyone, including family, friends and others, insult or talk down to you: never How often does anyone, including family, friends and others, threaten you with harm: never How often does anyone, including family, friends and others, scream or curse at you: never service: No Exam Narrative: Exam Narrative: On examination in room 7 she is in no apparent distress she is pleasant alert, good color, conjunctiva well perfused, chest is good air entry heart sounds are normal her abdomen is soft I do not feel a gravid uterus. Bowel sounds are normal, no other organomegaly skin result petechiae rashes moves all extremities independently and well. Const: Vital Signs, click to edit/add: Vital Signs - 24 hr 10/09/24 04:59 Temperature 96.8 F L Pulse Rate [Right Pulse Oximeter] 82 Respiratory Rate 16 Blood Pressure [Le ft Upper Arm] 142/97 H Pulse Oximetry 98 Oxygen Delivery Me thod Room Air Documenting provider has reviewed patient's vital signs: yes Course Reevaluation(s) Time of Reevaluation #1: 08:30 Reevaluation #1: I spoke to Dr. Mckeon once I got the results of the ultrasound which showed retained products, she had another case, and the stability of the patient we will keep her here in the emerged from, she will go to the operating room for a D&C. I spoke to the patient, she did have some questions for OBGYN this will be answered. Vital Signs Vital signs: Initial Vital Signs Temperature 96.8 F L 10/09/24 04:59 Temperature Source Temporal Artery Scan 10/09/24 04:59 Pulse Rate 82 10/09/24 04:59 Pulse Rhythm Regular 10/09/24 04:59 Respiratory Rate 16 10/09/24 04:59 Blood Pressure 142/97 H 10/09/24 04:59 Blood Pressure Mean 112 H 10/09/24 04:59 Blood Pressure Position Semi-Fowlers 10/09/24 04:59 Pulse Oximetry 98 10/09/24 04:59 Oxygen Delivery Method Room Air 10/09/24 04:59 Vital Signs Temperature 96.8 F L 10/09/24 04:59 Pulse Rate 82 10/09/24 04:59 Respiratory Rate 16 10/09/24 04:59 Blood Pressure 142/97 H 10/09/24 04:59 Pulse Oximetry 98 10/09/24 04:59 Oxygen Delivery Method Room Air 10/09/24 04:59 Temperature 96.8 F L 10/09/24 04:59 Pulse Rate 82 10/09/24 04:59 Respiratory Rate 16 10/09/24 04:59 Blood Pressure 142/97 H 10/09/24 04:59 Pulse Oximetry 98 10/09/24 04:59 Oxygen Delivery Method Room Air 10/09/24 04:59 Medications Administered Medications: Discontinued Medications Generic Name Dose Route Start Last Admin Trade Name Freq PRN Reason Stop Dose Admin Sodium Chloride 1,000 mls @ 1,000 mls/hr 10/09/24 05:00 10/09/24 05:31 0.9 % Sodium Chloride 1000 Ml IV 10/09/24 05:59 1,000 mls/hr .Q1H PRACHI Administration MDM - Female Genitourinary MDM Narrative Medical decision making narrative: During this evaluation I considered multiple diagnosis including retained products of conception, uterine atony, hematoma and bleeding from previous vaginal repair, We will start an IV, fluids, she is A-positive with a negative antibody screen. Will order an ultrasound, Medical Records Attestation: I reviewed the patient's medical records. Lab Data Attestation: I reviewed the patient's lab results. Labs: Lab Results 10/09/24 Range/Units 04:55 WBC 7.23 (4.50-11.00) K/uL RBC 4.88 (4.00-5.20) m/uL Hgb 14.6 (12.0-16.0) gm/dL Hct 44.7 (33.0-51.0) % MCV 92 (80-100) fL MCH 30 (26-34) pg MCHC 33 (32-36) gm/dL RDW Coeff of Ariane 12.1 (11.5-15.5) % Plt Count 298 (140-440) K/uL Neut % (Auto) 55.9 (42.0-72.0) % Lymph % (Auto) 33.7 (20-44) % Mccreary % (Auto) 7.7 (0.0-11.0) % Eos % (Auto) 1.7 (0.0-7.0) % Baso % (Auto) 0.7 (0.0-3.0) % Neut # (Auto) 4.04 (1.7-7.0) K/uL Lymph # (Auto) 2.44 (0.90-2.90) K/uL Mccreary # (Auto) 0.60 (0.00-0.90) K/UL Eos # (Auto) 0.12 (0.00-0.50) K/uL Baso # (Auto) 0.05 (0.00-0.30) K/uL Abs Immat Gran (auto) 0.02 (0.00-0.30) K/uL Imm/Tot Granulo (auto) 0.3 % INR 0.83 L (0.91-1.10) APTT 28 (23-33) Seconds Sodium 138 (135-149) mmol/L Potassium 3.8 (3.6-5.1) mmol/L Chloride 103 (96-114) mmol/L Carbon Dioxide 27 (20-32) mmol/L Anion Gap 8 (7-15) mEq/L BUN 22 (5-24) mg/dL Creatinine 0.7 (0.5-1.5) mg/dL Estimated Creat Clear 101.90 Estimated GFR 116 ml/min Glucose 99 (60-115) mg/dL Calcium 9.3 (8.4-10.6) mg/dL Imaging Data Pelvic ultrasound: Attestation: I have reviewed the pertinent imaging results. Radiologist's impression: atient: Jie Palmer Jeovany MR#: [id number] : 1990 Acct:[id number] Loc: ED Service Date: 10/09/[address]: Ordering Physician: Genaro Verduzco M.D. Date of Service: 10/09/24 Procedure(s): US pelvic transvaginal Accession Number(s): [id number] cc: Provider,Not a Local; Genaro Verduzco M.D.~ For Patients: As a result of the Century Cures Act, medical imaging exams and procedure reports are released immediately into your electronic medical record. You may view this report before your referring provider. If you have questions, please contact your health care provider. Indication: Vaginal bleed, 11 days status post vaginal delivery. Technique: Real-time grayscale and color Doppler images were obtained transvaginally to assess the endometrium with static images saved for review. Comparison: 02/15/2024 Findings/Impression: Transvaginal images show the endometrium to be markedly thickened measuring 45 millimeters with a heterogeneous echotexture. Products are mostly avascular, however a small amount of vascularity is seen at the posterior margin. Appearance is suggestive of retained products of conception in this setting. Dictated by Hesham Branch MD @ 10/09/2024 7:19:07 AM (Electronically Signed) Discharge Plan Discharge Clinical Impression: Retained products of conception, Abnormal vaginal bleeding Patient Disposition: XFER to OR Condition: Stable Follow Up/Referrals: Provider,Not a Local [Primary Care Provider, Family Practice]
[2024-10-09 05:33] LABS: Hematocrit 44.7 % (33.0-51.0); Hemoglobin* 14.6 gm/dL (12.0-16.0); Immature Granulocytes Abs Auto 0.02 K/uL (0.00-0.30); Immature Granulocytes Pct Auto 0.3 %; Lymphocytes Absolute Auto 2.44 K/uL (0.90-2.90); Mean Corpuscular HGB Conc 33 gm/dL (32-36); Mean Corpuscular Hemoglobin 30 pg (26-34); Mean Corpuscular Volume 92 fL (80-100); RDW Coefficient of Variation % 12.1 % (11.5-15.5); Red Blood Count 4.88 m/uL (4.00-5.20); White Blood Count* 7.23 K/uL (4.50-11.00)
[2024-10-09 05:34] LABS: Slide Review Reflex No
[2024-10-09 05:45] LABS: Chloride* 103 mmol/L (96-114); Potassium* 3.8 mmol/L (3.6-5.1); Sodium* 138 mmol/L (135-149)
[2024-10-09 05:48] LABS: Anion Gap 8 mEq/L (7-15); Blood Urea Nitrogen* 22 mg/dL (5-24); Calcium* 9.3 mg/dL (8.4-10.6); Carbon Dioxide* 27 mmol/L (20-32); Creatinine* 0.7 mg/dL (0.5-1.5); Est. Creatinine Clearance* 101.90; Estimated Glomerular Filt Rate 116 ml/min; Glucose* 99 mg/dL (60-115); INR 0.83 (0.91-1.10); Prothrombin Time 12.2 Seconds
--- NOTE | 2024-10-09 07:27 | PM.GYNCN1 ---
LIFELINE REPRESENTATIVES - CN: HPI Data of Consult Time Seen by Provider: : Date Seen: 10/09/24 Patient: [facility] Patient Consult date: 10/09/24 Primary Care Provider: Not a Local Provider Consult Narrative Narrative: Jie Palmer is a 34 year old female who delivered on 09/30/24. Patient report her course was progressing as expected. Bleeding had become minimal. However, at around 4 am, she was up her child when she experience a gush of blood and passage of large clots. Bleeding was not associated with pain or cramping. She subsequently presented to the ED for evaluation. Patient denies fever, chills, chest pain, SOB, n/v, headache, vision changes, RUQ pain, or dizziness. Her history is significant for a diagnosis of gestational hypertension not requiring medication. Pelvic US today: Transvaginal images show the endometrium to be markedly thickened measuring 45 millimeters with a heterogeneous echotexture. Products are mostly avascular, however a small amount of vascularity is seen at the posterior margin. Appearance is suggestive of retained products of conception in this setting. cc:: CC: Review of Systems Status of ROS: Reports: 6 or more systems reviewed and unremarkable except as noted in History and below PFSH PFSH Medical History History of episiotomy ?Z98.890 - Other specified postprocedural states (ICD-10) hypertension ?O16.5 - Unspecified maternal hypertension, complicating the puerperium (ICD-10) Depression ?F32.A - Depression, unspecified (ICD-10) Surgical History [place] teeth extracted ?K08.409 - Partial loss of teeth, unspecified cause, unspecified class (ICD-10) Family History Maternal Grandfather High blood pressure Paternal Grandmother Diabetes Social History Narrative: SOCIAL Education: College Work: [employer] Partner: Mario Lives with: Mario and Aliyah Pets: 3 cats and a dog Abuse: Denies past/present Special Diet: Denies Ok with a blood transfusion: yes Culture or anabaptist beliefs: denies RISK FACTORS Exercise Times/wk: No routinely Hx of Depression and/or Anxiety/other mood disorder: Minor history of depression, no medication; seen therapist in the past Seat Belt Use: Routinely Smoking: Denies past/present Alcohol/day: Denies while Caffeine: Not now, occasional coffee/tea Drug Use: Denies past/present Chicken Pox: vaccinated MRSA: Denies What is your current living situation?: I presently have a place to live Problems where you live: no known problems In the past 12 months, utilities in danger of being shut off: no In past 12 months, lack of transportation kept you from medical appts, meetings, work, or getting things needed for daily living: no In the past 12 mos, have been you worried that your food would run out before you had money to buy more?: never true In the past 12 mos, the food you bought just didn't last and you didn't have money to buy more?: never true Smoking Status: Never smoker Do you use any of these nicotine containing products: None Second hand tobacco smoke exposure: No How often do you have a drink containing alcohol: never AUDIT-C Alcohol total score: 0 Non-prescribed substance use: denies use How often does anyone, including family, friends and others, physically hurt you: never How often does anyone, including family, friends and others, insult or talk down to you: never How often does anyone, including family, friends and others, threaten you with harm: never How often does anyone, including family, friends and others, scream or curse at you: never service: No Meds Home Medications and Allergies Home Medications ?Medication ?Instructions ?Recorded ?Confirmed ?Type vitamins no.119-iron 1 tab PO DAILY 02/15/24 10/09/24 History fumarate 29 mg-folic acid 1 mg tablet docusate sodium 100 mg capsule 100 mg PO DAILY #60 caps 10/01/24 10/09/24 Rx ibuprofen 600 mg tablet 600 mg PO Q6H PRN #60 tabs 10/01/24 10/09/24 Rx Allergies Allergy/AdvReac Type Severity Reaction Status Date / Time No Known Drug Allergies Allergy Verified 09/29/24 20:18 LIFELINE REPRESENTATIVES - Exam Physical Exam: Vital signs: Temp Pulse Resp BP Pulse Ox O2 Del Method 96.8 F L 82 16 142/97 H 98 Room Air 10/09/24 04:59 10/09/24 04:59 10/09/24 04:59 10/09/24 04:59 10/09/24 04:59 10/09/24 04:59 Narrative: Physical exam: General: No acute distress Psych: Alert and oriented x4, full affect HEENT: Normocephalic, atraumatic Heart: Regular rate and rhythm, no murmur rub or gallop Lungs: Clear to auscultation bilaterally Abdomen: soft, no tenderness, rebound, or guarding. Fundus firm 3 cm below umbilicus. No fundal tenderness noted. Skin: No lesions or rashes Lower extremities: No edema or erythema Pelvic exam: Small amount of blood on pad. No bleeding expressed with fundal massage. LIFELINE REPRESENTATIVES - Results Labs Labs: Short CBC 10/09/24 Range/Units 04:55 WBC 7.23 (4.50-11.00) K/uL Hgb 14.6 (12.0-16.0) gm/dL Hct 44.7 (33.0-51.0) % Plt Count 298 (140-440) K/uL [facility] 10/09/24 04:55 Sodium 138 Potassium 3.8 Chloride 103 Carbon Dioxide 27 BUN 22 Creatinine 0.7 Glucose 99 Calcium 9.3 Assessment and Plan Assessment and plan (1) Retained products of conception: Status: Acute Plan - bleeding 2/2 retained products of conception - Hgb 14.6/plt 298 on 10/09 - I recommend suction dilation and curettage for management of retained products of conception. I reviewed how this procedure is performed. This is done in the operating room with conscious sedation and paracervical block (usually). The cervix is dilated open, a plastic curette is advanced into the uterus and connected to a vacuum. The vacuum then pulls the retained products of conception out of the uterus. All tissue removed from the uterus is sent to the lab for testing to verify pathology. Ultrasound guidance is generally not required but might be used if anatomy is difficult or if there's excessive bleeding. Risks with a suction curettage include bleeding necessitating transfusion, injury to cervix or uterus, Infection in the uterus resulting in endometritis. She will receive antibiotics in the IV in the operating room prior to the procedure to prevent infection (200 mg of doxycycline). Chance of Asherman syndrome resulting in inability to conceive a in the future: 04/2499. Chance of anesthesia complications are extremely rare: Less than 1/100,000 especially with negative personal or family history of anesthesia issues. Expected recovery: Mild cramping after surgery usually controlled with [id number] extra-strength Tylenol and ibuprofen. Only restriction for activity postoperatively/after a miscarriage is nothing vaginally for 2 weeks (she'll still be on restriction of pelvic rest until 6 weeks ). She should expect to have some bleeding for 2-4 weeks after surgery but this should be more scant/light. All of her questions were answered. - Patient consent and all questions answered to patient's satisfaction - Plan: proceed to OR for urgent surgery. Per OR charge nurse, unable to get her into OR until 1 pm given that she is hemodynamically stable with minimal bleeding currently. Discussed with Dr. Cheng the timing and I requested Qhourly pad check until she goes to the OR.
[2024-10-09] MEDS: LACTATED RINGERS 1000 ML 1,000 ML 100 ML IV ×3 (13:50→18:08)
--- NOTE | 2024-10-09 13:56 | SUR.PREOP ---
Pt up to restroom and reports small amount of blood in toilet, but states less than previously. Ready for surgery, to OR shortly.
--- NOTE | 2024-10-09 14:05 | P.ANES_ITS ---
Anesthesia Charges Start Date/Time Anesthesia Start Date: 10/09/24 Anesthesia Start Time: 14:49 Stop Date/Time Anesthesia Stop Date: 10/09/24 Anesthesia Stop Time: 16:45 Coding CPT Codes CPT Codes: ANESTH INC/MISSED AB PROC - 76492 ([id number]) P1 - NORMAL HEALTHY PATIENT, QK - REGISTER REPAIRER 2-4 CNCRNT ANEBaljeet PROC, QX - FISH DRESSING MACHINE FEEDER SVLeydi W/ MED DIRECTION
--- NOTE | 2024-10-09 14:05 | W.ANESCHARGE ---
Anesthesia Charges Start Date/Time Anesthesia Start Date: 10/09/24 Anesthesia Start Time: 14:49 Stop Date/Time Anesthesia Stop Date: 10/09/24 Anesthesia Stop Time: 16:45 Coding CPT Codes CPT Codes: ANESTH INC/MISSED AB PROC - 66922 ([id number]) P1 - NORMAL HEALTHY PATIENT, QK - EDITORIAL CARTOONIST 2-4 CNCRNT ANEBaljeet PROC, QX - ADMINISTRATOR OF HOME HEALTH SVLeydi W/ MED DIRECTION
[2024-10-09] MEDS: DOXYCYCLINE HYCLATE 200 MG in 0.9 % SODIUM CHLORIDE Mini-bag 100 ML 100 MG IVPB (15:17)
[2024-10-09] MEDS: miSOPROStoL 800 MCG/4 TABLET PR (15:45)
[2024-10-09 15:59] LABS: Hematocrit 31.2 % (33.0-51.0); Hemoglobin* 10.3 gm/dL (12.0-16.0); Immature Granulocytes Abs Auto 0.01 K/uL (0.00-0.30); Immature Granulocytes Pct Auto 0.2 %; Lymphocytes Absolute Auto 1.65 K/uL (0.90-2.90); Mean Corpuscular HGB Conc 33 gm/dL (32-36); Mean Corpuscular Hemoglobin 30 pg (26-34); Mean Corpuscular Volume 92 fL (80-100); RDW Coefficient of Variation % 12.0 % (11.5-15.5); Red Blood Count 3.39 m/uL (4.00-5.20); White Blood Count* 6.45 K/uL (4.50-11.00)
[2024-10-09 16:00] LABS: Slide Review Reflex No
[2024-10-09 16:15] LABS: INR 1.01 (0.91-1.10); Prothrombin Time 14.1 Seconds
--- NOTE | 2024-10-09 16:59 | P.ANES_ITS ---
Anesthesia Charges Start Date/Time Anesthesia Start Date: 10/09/24 Anesthesia Start Time: 14:49 Stop Date/Time Anesthesia Stop Date: 10/09/24 Anesthesia Stop Time: 16:45 Coding CPT Codes CPT Codes: ANESTH INC/MISSED AB PROC - [id number] ([id number]) P1 - NORMAL HEALTHY PATIENT, QK - STENCIL MACHINE OPERATOR 2-4 CNCRNT ANEBaljeet PROC, QX - HIDE STRETCHER HAND SVLeydi W/ MED DIRECTION
--- NOTE | 2024-10-09 16:59 | W.ANESCHARGE ---
Anesthesia Charges Start Date/Time Anesthesia Start Date: 10/09/24 Anesthesia Start Time: 14:49 Stop Date/Time Anesthesia Stop Date: 10/09/24 Anesthesia Stop Time: 16:45 Coding CPT Codes CPT Codes: ANESTH INC/MISSED AB PROC - [id number] ([id number]) P1 - NORMAL HEALTHY PATIENT, QK - CARTON COUNTER FEEDER 2-4 CNCRNT ANEBaljeet PROC, QX - URBAN AND REGIONAL PLANNER SVLeydi W/ MED DIRECTION
[2024-10-09] MEDS: ACETAMINOPHEN 500 MG TABLET 1000 MG PO (18:13)
[2024-10-09] MEDS: lidocaine HCL 2 % JELLY (TOP) STERILE 6 ML TOPICAL (18:14)
--- NOTE | 2024-10-09 18:23 | P.GYNPRC_ITS ---
Procedure Note Time Seen by Provider: 15:00 Date of procedure: 10/09/24 Will [facility] bill your pro fee for this procedure?: Yes Procedure Description: DILATION AND CURETTAGE PREOPERATIVE DIAGNOSIS: 1. Retained placenta 2. Small dehiscence of second-degree repair, hemostatic. POSTOPERATIVE DIAGNOSIS: 1. Retained placenta 2. Uterine atony 3. Intraoperative hemorrhage 4. Small dehiscence of second-degree repair, hemostatic. PROCEDURE: 1. EUA 2. Ultrasound guided suction curettage 3. Insertion of intrauterine balloon catheter x2, vaginal packing placement SURGEON: Roma Mckeon MD ANESTHESIA: MAC FINDINGS: 1. Normal external genitalia, normal appearing cervix 2. Small dehiscence of second-degree repair noted when patient placed in yellow fin, Vicryl sutures disrupted but hemostatic. 3. Uterus anteverted, 3 cm below umbilicus. No adnexal masses on EUA 4. Cervix dilated to 1 cm FLUIDS: 1800 cc QUANTITATIVE BLOOD LOSS: 981 cc URINE OUTPUT: 100 cc COMPLICATIONS: Uterine atony PREOP ANTIBIOTIC: 200 mg of Doxycycline SPECIMEN: 1. Retained placenta INDICATIONS: Jie 34yo , with vaginal bleeding and diagnosed with subsequent retained placenta. DESCRIPTION OF PROCEDURE: The patient was taken to the operating room where general anesthesia was administered. She was prepared and draped in normal sterile fashion in the dorsal lithotomy position in yellow fin/candy cane stirrups, taking care to avoid lower extremity hyperextension, hyperflexion or compression. At that time, Small dehiscence of second-degree repair noted when patient placed in yellow fin, Vicryl sutures disrupted but hemostatic. A surgical time-out was performed with the entire operative staff per protocol. Perioperative antibiotics were given and pneumoboots were placed and activated. EUA revealed the above findings. Bladder was drained with a red rubber. A speculum was placed in the patient's vagina and a single-tooth tenaculum was placed on the anterior lip of the cervix. The cervix did not need dilation as it was dilated to 1 cm. Thus, 10 [place] citizen curette was used. The suction curettage was then inserted under direct visualization. The uterus was then gently suction curetted and rotated to clear the uterus of retained products. This was performed until a gritty texture was noted and the uterus was cleared. However, patient had brisk bleeding everything that curette was removed requiring bimanual massage. Procedure was switched ultrasound guidance given increased bleeding. Dr. Phan came in to assist with driving ultrasound and procedure. With every passage of the curette, endometrial stripe noted to be very thin. However, uterus would reaccumulate with blood/clots and bleeding would resume. Duvall catheter placed intrauterine for tamponade -filled up to 20 mL. Under ultrasound guidance, it was noted that blood was accumulating superior to the Duvall catheter balloon. Fundal height was also noted to be expanding just underneath the umbilicus. Duvall catheter balloon deflated and removed from the uterus. Another passage of curettage was done to evacuate more clots. Duvall catheter was reinserted all the way to the fundus under ultrasound guidance and filled up to 20 mL. A 2nd Duvall catheter was inserted and filled up to 5 mL in the lower uterine segment to make sure the entire uterine cavity was tamponade. After 30 minutes of observation, there was no bleeding around the balloon catheter noted on ultrasound or through the cervical os. Stat labs sent intraop to return with the following values: Hbg went from 14.6 gm/dL --> 10.3 gm/dL. Plts from 298 --> 234. INR, apTT and fibrinogen wnl. Throughout the proceed she was given: 30u of pitocin, 0.2 mg of methergine x 1, 0.25 mg of hemabate x1, 800 mcg of misoprostol rectally, and 1g of TXA. Decision was made to hold on blood due to hemostasis established at the time la bs resulted. There was no bleeding noted around the duvall catheter. The tenaculum was removed from the anterior lip of the cervix and excellent hemostasis was noted. Vaginal packing placed. All instruments were removed. Debrief performed per protocol and specimen reviewed. Specimen was sent to pathology. Sponge, lap and needle counts were correct x 2. The patient was taken to the recovery room in stable condition. Decision was made to transfer to tertiary care center with IR access in case bleeding restarts after removal of vaginal packing and deflation of intrauterine balloons.
[2024-10-09 18:52] LABS: Hematocrit 37.7 % (33.0-51.0); Hemoglobin* 12.4 gm/dL (12.0-16.0); Immature Granulocytes Pct Auto 0.3 %; Mean Corpuscular HGB Conc 33 gm/dL (32-36); Mean Corpuscular Hemoglobin 30 pg (26-34); Mean Corpuscular Volume 92 fL (80-100); RDW Coefficient of Variation % 12.0 % (11.5-15.5); Red Blood Count 4.08 m/uL (4.00-5.20); White Blood Count* 17.68 K/uL (4.50-11.00)
[2024-10-09 18:53] LABS: Immature Granulocytes Abs Auto 0.10 K/uL (0.00-0.30); Lymphocytes Absolute Auto 1.80 K/uL (0.90-2.90); Slide Review Reflex No
[2024-10-09 19:27] LABS: INR 0.93 (0.91-1.10); Prothrombin Time 13.3 Seconds
== END 2024-10-09 20:08 | disposition short-term general hospital (02) ==
LOC: ED 08:33 → SS 11:47 → OB 17:44
PROVIDERS: Emergency Provider Family Medicine; Visit Provider Obstetrics & Gynecology
PROC: (CPT 59160; principal; 2024-10-09 14:00)
DX: O72.0 Third-stage hemorrhage (principal); O72.2 Delayed and secondary postpartum hemorrhage; O90.1 Disruption of perineal obstetric wound; N99.61 Intraoperative hemorrhage and hematoma of a genitourinary system organ or structure complicating a genitourinary system procedure; O13.5 Gestational [pregnancy-induced] hypertension without significant proteinuria, complicating the puerperium
CPT/HCPCS: 59160; 59899; 01965; 36415; 76830; 76998; 80048; 85025; 85384; 85610; 85730; 88305; 99284; 99285; A4314; A9270; J1100; J1171; J2210; J2250; J2371; J2405; J2590; J2704; J3010; J3490; J7030; J7120

== ENCOUNTER 2024-10-09 19:47 | Outpatient (CLI) | payer OTHER, SELFPAY | END 2024-10-09 19:48 | disposition home or self-care (01) | LOC: AMB 10-12 10:47 | PROVIDERS: Visit Provider Family Medicine | DX: O72.2 Delayed and secondary postpartum hemorrhage (principal); N93.9 Abnormal uterine and vaginal bleeding, unspecified | CPT/HCPCS: A0425; A0427 ==

== ENCOUNTER 2024-10-16 10:59 | Outpatient (CLI) | payer OTHER, SELFPAY ==
--- NOTE | 2024-10-16 15:44 | W.PM.LAC.MF ---
Follow-Up Note: Mom Date of visit Date of visit: 10/16/24 Reason for consultation: Assistance Needed and Low Milk Supply Visit Code: Visit Patient's Information Allergies No Known Drug Allergies Allergy (Verified 10/13/24 15:14) Change in mother's history since last visit: mom with retained products of conception; had D&C on 10/09, hemorrhage with the procedure, transferred to [facility] for medical management, home on 10/11. Hgb at 9 (did not receive a transfusion). Feeling better each day, today feels like a good day, starting to get my energy back per mom Delivery Information Delivery type: Vaginal Gestational Age: 39+6 Gestational Weight For Age: AGA Weight: 3.475 kg Last Weight: 3.19 kg Baby's Information Baby's name: Shira Baby's Age at Visit: 17 days Baby's Provider or Clinic: [facility] Current Frequency of Day Feedings: every 3 hours day and night Frequency of Night Feedings: needs waking for feedings Both Breasts: Yes Suck: strong Latch: deep, comfortable Length of Time: 10-15 min, gets sleepy Pumping Pumping: Yes Quantity Pumped: 1/2-1 oz total Supplementing EBM Supplement: Yes Formula Supplement: No Baby Elimination Number of Wet Diapers a Day: ea feeding Number of BM a Day: 5-6/day Breast/Nipple Assessment Breast/Nipple Assessment: Breasts are symmetrical with rounded lower quadrants, intramammary distance is slightly greater1.5 inches. No erythema. Nipples are supple, everted prior to feeding. Breast Shape: Round Engorgement: No Maternal Nipple Condition - Left: Common Nipple Maternal Nipple Condition - Right: Common Nipple Sore Nipples: No Onsite Observation Pre-feed weight: 3.6 kg Post-Feed weight: 3.65 kg Milk Transferred (mL): 50 Pre-Nursing Left Nipple: Within Normal Limits Pre-Nursing Right Nipple: Within Normal Limits Post-Nursing Left Nipple: Within Normal Limits Post-Nursing Right Nipple: Within Normal Limits Assessments/Interventions Assessments/Interventions: OBSERVATION Babe latched? to mom's RIGHT breast, latched well and stayed nursing for 9 minutes. Transferred 16 ml of milk Babe then latched to mom's LEFT breast, latched well again and nursed for another 11 minutes. Transferred 26 ml of milk Tan latched again to mom's RIGHT breast and nursed for 5 more minutes Transferred another 8 ml Total milk transferred: 50 ml Babe needed minimal support to stay latched; mom did use breast compression to keep baby engaged near end of feeding. Discussed feeding options 1. continue doing the current plan (triple feeding), pumping with Spectra pump after ea feeding 2. pumping and bottling to know how much baby is getting with ea feeding 3. BF and then supplement with formula vs. EBM ( to drop pumping after ea feeding), but continue using the [place] to get what she can 4. Go to all formula Mom would like to continue feeding and collecting milk with the [place] to give baby EBM after ; baby did transfer double the volume from compared to her last visit on day 5 of life. Given mom's medical situation, it is possible she will increase her supply some but perhaps more slowly due to the stress on her body. Discussed overall caloric needs of baby; about 3 oz/feeding. ok to let baby sleep longer at night since back to birthweight, but should still get 8 feedings in 24 hours so will likely do some cluster feedings in the evening Recommend mom still feed or pump at least every 4 hours to maintain what supply she does have. FLUID/NUTRITION Discussed with mom staying up on hydration; electrlyte water does help some women with milk supply Oatmeal each morning for breakfast, brewers yeast added might help, continue with protein smoothie Mother's Milk tea in the afternoon might also be helpful (won't hurt) Her body needs some time to heal after labor, delivery, hemorrhage, retained placenta Reasonable to continue all this, if she is able and wants to, for another 7-10 days and monitor the response she sees in her milk supply. Education provided: Early feeding cues to maximize timing of latching, Asymmetric latch technique for wide/deep latch to increase milk, Transfer for baby and increase comfort for mom, Supply/demand nature of milk supply, Alternative feeding methods (SNS, cup, finger feeding, bottling) (paced bottle feeding) and Pumping for milk management Follow-Up Suggested follow up: Appointment as needed Time Spent Time spent with patient (min): 75 Meds Home Medications and Allergies Home Medications ?Medication ?Instructions ?Recorded ?Confirmed ?Type vitamins no.119-iron 1 tab PO DAILY 02/15/24 10/13/24 History fumarate 29 mg-folic acid 1 mg tablet ibuprofen 600 mg tablet 600 mg PO Q6H PRN #60 tabs 10/01/24 10/13/24 Rx docusate sodium 100 mg capsule 100 mg PO DAILY PRN 10/13/24 History Allergies Allergy/AdvReac Type Severity Reaction Status Date / Time No Known Drug Allergies Allergy Verified 10/13/24 15:14
== END 2024-10-16 11:00 | disposition home or self-care (01) ==
LOC: OB LAC 11:01
PROVIDERS: Visit Provider Obstetrics & Gynecology
DX: Z39.1 Encounter for care and examination of lactating mother (principal)
CPT/HCPCS: G0463